=== PATIENT | male | born 1930 | race Caucasian/White ===

== ENCOUNTER 2018-06-06 11:12 | Inpatient (IN) | payer MEDICARE, OTHER ==
[~2018-06-06] VITALS: Ht 182.9 cm; Wt 91.6 kg
[~2018-06-06 11:12] MED LIST: ? HTN MED; ALBU90OI61 INH; ASPI325 PO; ASPI81CH PO; ASPI81EC PO; Anti-Diarrheal2 MG PO; BUDE6HFA INH; CALMAGZIN PO; CLOP75 PO; DESO.05TL TP; DONE10 PO; Dicyclomine HCl20 MG PO; EZET10-10 PO; EZET10-40 PO; GLIM2 PO; IBS MED; KETO120T TP; LISI20 PO; LOPE2C PO; LORA10ER PO; MEMA10 PO; METF500 PO; MOXI400 PO; Ocuvite Softge1 EAC1 PO; VITAMIN D-32000 UNI1 PO; Ventolin Soln3 ML INH; [UNRECOGNIZED DRUG - CODE] PO; [UNRECOGNIZED DRUG - CODE] PO; [UNRECOGNIZED DRUG - CODE] PO; [UNRECOGNIZED DRUG - OTHER]; [UNRECOGNIZED DRUG - OTHER]
[2018-06-06 11:56] LABS: BASOPHILS ABSOLUTE AUTO 0.07 K/mm3 (0.00-0.23); BASOPHILS PERCENT AUTO 1 % (0-2); EOSINOPHILS ABSOLUTE AUTO 0.31 K/mm3 (0.00-0.68); EOSINOPHILS PERCENT AUTO 4 % (0-6); Hematocrit 36.1 % (37.0-53.0); Hemoglobin 11.5 g/dL (13.5-17.5); IMMATURE GRAN ABSOLUTE AUTO 0.03 K/mm3 (0.00-0.10); IMMATURE GRAN PERCENT AUTO 0 % (0-1); LYMPHOCYTES ABSOLUTE AUTO 1.44 K/mm3 (0.84-5.20); LYMPHOCYTES PERCENT AUTO 19 % (21-46); MONOCYTES ABSOLUTE AUTO 0.63 K/mm3 (0.16-1.47); MONOCYTES PERCENT AUTO 9 % (4-13); Mean Corpuscular HGB 31.8 pg (26.0-34.0); Mean Corpuscular HGB Conc 31.9 g/dL (31.5-36.5); Mean Corpuscular Volume 100 fL (80-100); Mean Platelet Volume 9.6 fL (9.1-12.4); NEUTROPHILS ABSOLUTE AUTO 4.93 K/mm3 (1.96-9.15); NEUTROPHILS PERCENT AUTO 67 % (41-73); Platelet Count 212 K/mm3 (150-400); RDW Coefficient Variation 14.5 % (11.7-14.2); RDW Standard Deviation 52.8 fL (35.1-46.3); Red Blood Cell Count 3.62 M/mm3 (4.30-5.90); White Blood Cell Count 7.41 K/mm3 (4.00-11.30)
[2018-06-06 12:18] LABS: Albumin, Blood 3.2 g/dL (3.4-5.0); Albumin/Globulin Ratio 0.9 (0.8-1.8); Bilirubin, Total 0.3 mg/dL (0.1-1.0); Calcium, Blood 8.5 mg/dL (8.5-10.1); Creatinine, Blood 2.65 mg/dL (0.60-1.20); Globulin, Blood 3.4 g/dL (2.2-4.0); Potassium, Blood 5.9 mmol/L (3.5-5.5); Total Protein, Blood 6.6 g/dL (6.4-8.2); Troponin I 0.022 ng/mL (0.000-0.040)
[2018-06-06] MEDS ORDERED: **INCOMPLETE MED REC (13:12)
[2018-06-06] MEDS ORDERED: ALBU90OI6 INH (13:19)
[2018-06-06] MEDS ORDERED: CLOP75 PO (13:20)
[2018-06-06] MEDS ORDERED: ATOR20 PO (13:20)
[2018-06-06] MEDS ORDERED: BUDE6HFA INH (13:20)
[2018-06-06] MEDS ORDERED: DONE10 PO (13:21)
[2018-06-06] MEDS ORDERED: FURO20 PO (13:21)
[2018-06-06] MEDS ORDERED: GLIM2 PO (13:22)
[2018-06-06] MEDS ORDERED: Isosorbide Mono30 MG PO (13:24)
[2018-06-06] MEDS ORDERED: LISI5 PO (13:25)
[2018-06-06] MEDS ORDERED: LUTEIN40 MG PO (13:26)
[2018-06-06] MEDS ORDERED: MELO7.5 PO (13:26)
[2018-06-06] MEDS ORDERED: METO25 PO (13:27)
[2018-06-06] MEDS ORDERED: MEMA10 PO (13:27)
[2018-06-06] MEDS ORDERED: MYRBETRIQ50 MG PO (13:28)
[2018-06-06] MEDS ORDERED: OCTIVITE PO (13:29)
[2018-06-06] MEDS ORDERED: RANO500T PO (13:30)
[2018-06-06] MEDS ORDERED: Aspirin EC81 MG PO ×2 (13:31)
--- NOTE | 2018-06-06 18:42 | NUR ---
SHIFT SUMMARY 1650 PT RECEIVED FROM ER. ALERT AND ORIENTED X3, BUT SLOW TO ANSWER QUESTIONS. VSS. LUNG SOUNDS CLEAR, EXPIRATORY WHEEZES TO THE BASES. NSR RATE 60s PER TELEMETRY. BED ALARM IN PLACE. LR INFUSING AT 125 ML/HR TO LEFT AC. WILL CONTINUE TO MONITOR.
[2018-06-06 19:16] LABS: Source, Urine Voided
[2018-06-06 19:21] LABS: Bilirubin, Urine Neg (Neg); Blood, Urine Neg (Neg); Glucose Qualitative, Urine Neg (Neg); Ketones, Urine Neg (Neg); Leukocyte Esterase, Urine 1+ (Neg); Nitrite, Urine Neg (Neg); Protein, Urine 1+ (Neg); Urobilinogen, Urine NORM (Normal)
[2018-06-06 19:35] LABS: Appearance, Urine Clear (Clear); Color, Urine Yellow (P-Yellow); Red Blood Cells, Urine 0-2 /hpf (0-2)
[2018-06-06 19:37] LABS: Bacteria Few /hpf; Squamous Epithelial Cells Few /hpf (Few)
[2018-06-06 19:54] LABS: Eosinophils-Raw #,Urine 0
[2018-06-07 04:40] LABS: Bun/Creatinine Ratio 21.9 (12.0-20.0); Calcium, Blood 8.5 mg/dL (8.5-10.1); Creatinine, Blood 2.19 mg/dL (0.60-1.20); Potassium, Blood 5.4 mmol/L (3.5-5.5)
--- NOTE | 2018-06-07 05:10 | NUR ---
SHIFT SUMMARY. ASSUMED CARE AT 1900.CLEAR MENTATION. REVIEWS HX OF CAREER AND DISCUSSION OF FAMILY. SR FIRST DEGREE , 70 RATE. DENIES PAIN. COUGH OCC- FREQ AND REPORTS HAS BEEN COMMON FOR ABOUT A YEAR. WHITE SPUTUM . INCONTINENT STATING DUE TO LEAK W/ COUGHING. SMALL STOOL NOTED IN ATTENDS ALSO. CBG WNL AND REFUSES AN HS SNACK. NOTED AT 2400 WHILW DOZING, 88 % SAT ON RA. PLACED ON 2L FOR 94%, SCDS PLACED . AWAKE AT 0215 W/ " FUNNY FEELING , LIKE I HAD AT [facility]." SITS UP QUICKLY HE FEELS THE URGE TO VOMIT.DANGLES AND DENIES DIZZINESS. BP CHECK QUICKLY = 149/67. NO MONITOR CHANGES. ZOFRAN GIVEN AND QUICK RELIEF OF NAUSEA. DANGLED ABOUT 1 HR AND NOW COMFORTABLE. NOTE TALKS TO SELF DURING SLEEP. NO FURTHER DISCOMFORT
--- NOTE | 2018-06-07 06:49 | NUR ---
WOKE UP FROM SOUND SLEEP A LITTLE CONFUSED. TRIES TO VOID A STAND BY AND ALMOST PULLS OUT IV . NOT CONSIDERING IV POLE. 100ML VOIDED AND VERY SOAKED ATTENDS.
--- NOTE | 2018-06-07 16:02 | NUR ---
Spiritual care visit conducted. I was charting near patient's room and heard him setting off his chair alarm and speaking in a loud voice. After the staff helped him get settled down and seated I heard him say that he did not like television much but liked music. So I returned with my guitar and played and sang several songs for the patient, after receiving permission. Patient and the family members present seemed genuinely appreciative of the music and it appeared to bring mary to the patient. Patient expressed gratitude for the visit.
[2018-06-08 04:12] LABS: BASOPHILS ABSOLUTE AUTO 0.04 K/mm3 (0.00-0.23); BASOPHILS PERCENT AUTO 0 % (0-2); EOSINOPHILS ABSOLUTE AUTO 0.26 K/mm3 (0.00-0.68); EOSINOPHILS PERCENT AUTO 2 % (0-6); Hematocrit 38.5 % (37.0-53.0); IMMATURE GRAN ABSOLUTE AUTO 0.04 K/mm3 (0.00-0.10); IMMATURE GRAN PERCENT AUTO 0 % (0-1); LYMPHOCYTES ABSOLUTE AUTO 0.56 K/mm3 (0.84-5.20); LYMPHOCYTES PERCENT AUTO 5 % (21-46); MONOCYTES ABSOLUTE AUTO 1.52 K/mm3 (0.16-1.47); MONOCYTES PERCENT AUTO 13 % (4-13); Mean Corpuscular HGB 31.4 pg (26.0-34.0); Mean Corpuscular HGB Conc 31.2 g/dL (31.5-36.5); Mean Corpuscular Volume 101 fL (80-100); Mean Platelet Volume 9.5 fL (9.1-12.4); NEUTROPHILS ABSOLUTE AUTO 9.01 K/mm3 (1.96-9.15); NEUTROPHILS PERCENT AUTO 79 % (41-73); Platelet Count 203 K/mm3 (150-400); RDW Coefficient Variation 14.2 % (11.7-14.2); RDW Standard Deviation 53.1 fL (35.1-46.3); Red Blood Cell Count 3.82 M/mm3 (4.30-5.90); White Blood Cell Count 11.43 K/mm3 (4.00-11.30)
[2018-06-08 04:36] LABS: Magnesium, Blood 1.8 mg/dL (1.6-2.4)
[2018-06-08 04:37] LABS: Albumin/Globulin Ratio 0.9 (0.8-1.8); Bilirubin, Total 0.4 mg/dL (0.1-1.0); Bun/Creatinine Ratio 21.7 (12.0-20.0); Calcium, Blood 8.3 mg/dL (8.5-10.1); Creatinine, Blood 2.07 mg/dL (0.60-1.20); Globulin, Blood 3.4 g/dL (2.2-4.0); Potassium, Blood 5.5 mmol/L (3.5-5.5); Total Protein, Blood 6.4 g/dL (6.4-8.2)
--- NOTE | 2018-06-08 04:41 | NUR ---
PCU NOC SHIFT SUMMARY PATIENT ALERT AND ORIENTED TO SELF, AND LOCATION T/O SHIFT. LUNG SOUNDS COARSE WITH THICK SPUTUM PRODUCTION - PATIENTS VSS ON ROOM AIR. PATIENT CONTINUOUS TO HAVE COARSE COUGH. PATIENT AMBULATES TO BATHROOM WITH STANDBY ASSIST. PATIENTS HEART RATE REMAINS SR WITH 1ST DEGREE BLOCK AND PVC'S IN THE 80'S. PATIENT NAUSOUS AND VOMITED DURING SHIFT X2. NO ACUTE CHANGES NOTED. WILL CONTINUE TO MONITOR AND GIVE REPORT TO DAYSHIFT RN. CALL LIGHT W/I REACH AND BED ALARM ON.
--- NOTE | 2018-06-08 08:40 | NUR ---
ASSUMED CARE: REPORT RECEIVED FROM KIM Vizcarra RN. ASSUMED CARE OF THIS PT AT APPROX 0700. ON ASSESSMENT, THE PT IS RESTING QUIETLY & DENIES PAIN. HE IS OOB TO CHAIR FOR BREAKFAST & TOLERATED THIS WELL W/ SBA FOR TX. HIS IS AT BEDSIDE & SUPPORTIVE W/ CARE. WILL CONTINUE TO MONITOR & UPDATE NEEDED.
--- NOTE | 2018-06-08 09:10 | NUR ---
DR. ECHAVARRIA: PROVIDER AT BEDSIDE, DISCUSSED POC. SHE STS THE PT CAN NOW BE MEDICAL W/ NO TELE STATUS. NO OTHER ORDERS AT THIS TIME. POSS D/C HOME TOMORROW IF IMPROVEMENT CONTINUES. WILL CONTINUE TO MONITOR & UDPATE NEEDED.
--- NOTE | 2018-06-08 14:00 | NUR ---
Met pt. lying in bed and the spouse in the room , pt. reports doing much better. offered prayers for the pt.
--- NOTE | 2018-06-08 15:26 | NUR ---
ASSUMED CARE OF PT.
--- NOTE | 2018-06-08 18:53 | NUR ---
SHIFT SUMMARY PT ALERT AND ORIENTED. PT HAS MILD CONFUSION, BUT REORIENTS QUICKLY. PT NEEDS ENCOURAGEMENT TO USE CALL LIGHT TO AMBULATE TO BATHROOM. BED ALARM ON. NO CHANGES SINCE INITIAL ASSESSMENT. WILL CONTINUE TO MONITOR AND REPORT TO ONCOMING RN.
--- NOTE | 2018-06-08 23:50 | NUR ---
ASSUMED CARE OF PATIENT AT APPROXIMATELY 1910 FROM LYNETTE Cartagena RN. PATIENT ALERT AND ORIENTED TO SELF AND SURROUNDINGS; UNABLE TO STATE DATE, EVENT OR LOCATION; FORGETFUL; SBA OUT OF BED. PATIENT IS MEDICAL NO TELE STATUS. PATIENT DENIES PAIN, NUMBNESS, TINGLING, DIZZINESS AND NAUSEA. CALLED INSULATION HELPER RANI TO REPORT CRACKLES, FLUID BALANCE AND WEIGHT GAIN; NS INFUSING AT 75 ML/HR; ORDERS TO CONTINUE FLUIDS. OXYGEN SATURATION ABOVE 90% ON ROOM AIR. PATIENT HAS PRODUCTIVE COUGH NOTED; MODERATE AMOUNTS OF SPUTUM PRODUCED. PATIENT CURRENTLY SLEEPING IN BED; CALL LIGHT IN REACH; BED IN LOWEST POSISTION; WILL CONTINUE TO MONITOR AND ASSESS UNTIL END OF SHIFT.
[2018-06-09 03:55] LABS: BASOPHILS ABSOLUTE AUTO 0.03 K/mm3 (0.00-0.23); BASOPHILS PERCENT AUTO 0 % (0-2); EOSINOPHILS PERCENT AUTO 2 % (0-6); Hemoglobin 10.7 g/dL (13.5-17.5); IMMATURE GRAN ABSOLUTE AUTO 0.03 K/mm3 (0.00-0.10); IMMATURE GRAN PERCENT AUTO 0 % (0-1); LYMPHOCYTES ABSOLUTE AUTO 0.83 K/mm3 (0.84-5.20); LYMPHOCYTES PERCENT AUTO 9 % (21-46); MONOCYTES ABSOLUTE AUTO 1.08 K/mm3 (0.16-1.47); MONOCYTES PERCENT AUTO 12 % (4-13); Mean Corpuscular HGB 31.6 pg (26.0-34.0); Mean Corpuscular HGB Conc 31.5 g/dL (31.5-36.5); Mean Corpuscular Volume 100 fL (80-100); Mean Platelet Volume 9.3 fL (9.1-12.4); NEUTROPHILS ABSOLUTE AUTO 6.62 K/mm3 (1.96-9.15); NEUTROPHILS PERCENT AUTO 75 % (41-73); Platelet Count 149 K/mm3 (150-400); RDW Coefficient Variation 14.3 % (11.7-14.2); RDW Standard Deviation 53.1 fL (35.1-46.3); Red Blood Cell Count 3.39 M/mm3 (4.30-5.90); White Blood Cell Count 8.79 K/mm3 (4.00-11.30)
[2018-06-09 04:22] LABS: Bun/Creatinine Ratio 24.4 (12.0-20.0); Creatinine, Blood 1.8 mg/dL (0.60-1.20); Potassium, Blood 5.8 mmol/L (3.5-5.5)
--- NOTE | 2018-06-09 08:10 | NUR ---
ASSUMED CARE: REPORT RECEIVED FROM MERCY Sifuentes RN. ASSUMED CARE OF THIS PT AT APPROX 0700. ROUNDING COMPLETE, PT RESTING QUIETLY AT THAT TIME. HIS IS AT BEDSIDE. HE DENIES PAIN OR NEEDS THIS AM. DOES HAVE MORE PRODUCTIVE COUGH THIS AM, PRODUCING YELLOW-CLEAR, THICK SPUTUM, DENIES "FEELING CONGESTED." PT DOES HAVE POSITIVE FLUID BALANCE ACCORDING TO I&Os & LASIX HAS BEEN HELD SINCE ADMIT. WILL ADDRESS W/ PROVIDER THIS AM. WILL CONTINUE TO MONITOR & UPDATE NEEDED.
--- NOTE | 2018-06-09 09:50 | NUR ---
DR. ECHAVARRIA: PROVIDER AT BEDSIDE. STS OKAY FOR PT TO D/C HOME. SHE WILL BE DECREASING PT's HOME DOSE OF LASIX & IT MAY BE RESUMED TODAY WHEN PT RETURNS HOME. JAKE Dolan, CHARGE NURSE, IS WORKING ON PT's D/C PACKET. WILL CONTINUE TO MONITOR & UPDATE NEEDED.
[2018-06-09] MEDS ORDERED: GUAI600T33 PO (10:05)
--- NOTE | 2018-06-09 11:08 | NUR ---
DISCHARGE TO HOME: D/C INSTRUCTIONS HAVE BEEN DISCUSSED W/ PT & PT's BY JAKE Dolan, SURVEYING CREW RODMAN. THEY HAVE DENIED FURTHER QUESTIONS. PIV HAS BEEN REMOVED & ALL BELONGINGS HAVE BEEN COLLECTED FROM ROOM. ESCORT VOLUNTEER ARRIVED & PT D/C'd FROM ROOM AT APPROX 1105. D/C PACKET TAKEN W/ PT's .
--- NOTE | 2018-06-09 13:16 | NUR ---
Pt. is in bed resting he reports doing well and may go home today or angel offered prayers for the pt.
== END 2018-06-09 11:05 | disposition home or self-care (01) | DRG 315 ==
LOC: ER 11:12 → PCU 14:43
PROVIDERS: Emergency Medicine; Internal Medicine; ADMIT Internal Medicine
DX: I95.9 Hypotension, unspecified (principal); N17.9 Acute kidney failure, unspecified; I13.0 Hypertensive heart and chronic kidney disease with heart failure and stage 1 through stage 4 chronic kidney disease, or unspecified chronic kidney disease; I50.32 Chronic diastolic (congestive) heart failure; E86.0 Dehydration; I44.0 Atrioventricular block, first degree; Z79.01 Long term (current) use of anticoagulants; I25.10 Atherosclerotic heart disease of native coronary artery without angina pectoris; E11.22 Type 2 diabetes mellitus with diabetic chronic kidney disease; J44.9 Chronic obstructive pulmonary disease, unspecified; F03.90 Unspecified dementia, unspecified severity, without behavioral disturbance, psychotic disturbance, mood disturbance, and anxiety; E87.5 Hyperkalemia; E86.9 Volume depletion, unspecified; Z95.1 Presence of aortocoronary bypass graft; Z95.5 Presence of coronary angioplasty implant and graft; E78.5 Hyperlipidemia, unspecified; Z87.891 Personal history of nicotine dependence; Z85.46 Personal history of malignant neoplasm of prostate; N18.3 Chronic kidney disease, stage 3 (moderate)
CPT/HCPCS: 36415; 71046; 71250; 80048; 80053; 81001; 82947; 83735; 83880; 84484; 85025; 87086; 87205; 93005; 93010; 94010; 94640; 94664; 94667; 94760; 96360; 97162; 97530; 98960; 99285-25; J1644; J2405; J7030; J7120

== ENCOUNTER 2018-08-30 06:25 | Inpatient (IN) | payer MEDICARE, OTHER ==
[~2018-08-30] VITALS: Ht 182.9 cm; Wt 91.6 kg
[~2018-08-30 06:25] MED LIST changes: +**INCOMPLETE MED REC; +ALBU90OI6 INH; +ATOR20 PO; +Aspirin EC81 MG PO; +FURO20 PO; +GUAI600T33 PO; +Isosorbide Mono30 MG PO; +LISI5 PO; +LUTEIN40 MG PO; +MELO7.5 PO; +METO25 PO; +MYRBETRIQ50 MG PO; +OCTIVITE PO; +RANO500T PO
[2018-08-30] MEDS ORDERED: BUDE6HFA INH (06:36)
[2018-08-30] MEDS ORDERED: LISI5 PO (06:37)
[2018-08-30 07:33] LABS: BASOPHILS ABSOLUTE AUTO 0.03 K/mm3 (0.00-0.23); BASOPHILS PERCENT AUTO 0 % (0-2); EOSINOPHILS ABSOLUTE AUTO 0.04 K/mm3 (0.00-0.68); EOSINOPHILS PERCENT AUTO 1 % (0-6); Hematocrit 32.8 % (37.0-53.0); Hemoglobin 10.8 g/dL (13.5-17.5); IMMATURE GRAN ABSOLUTE AUTO 0.03 K/mm3 (0.00-0.10); IMMATURE GRAN PERCENT AUTO 0 % (0-1); LYMPHOCYTES ABSOLUTE AUTO 0.66 K/mm3 (0.84-5.20); LYMPHOCYTES PERCENT AUTO 8 % (21-46); MONOCYTES ABSOLUTE AUTO 0.77 K/mm3 (0.16-1.47); MONOCYTES PERCENT AUTO 9 % (4-13); Mean Corpuscular HGB 32.6 pg (26.0-34.0); Mean Corpuscular HGB Conc 32.9 g/dL (31.5-36.5); Mean Corpuscular Volume 99 fL (80-100); Mean Platelet Volume 9.5 fL (9.1-12.4); NEUTROPHILS ABSOLUTE AUTO 6.62 K/mm3 (1.96-9.15); NEUTROPHILS PERCENT AUTO 81 % (41-73); Platelet Count 135 K/mm3 (150-400); RDW Coefficient Variation 14.6 % (11.7-14.2); RDW Standard Deviation 53.1 fL (35.1-46.3); Red Blood Cell Count 3.31 M/mm3 (4.30-5.90); White Blood Cell Count 8.15 K/mm3 (4.00-11.30)
[2018-08-30 08:08] LABS: Alanine Aminotransfer (ALT/SGP 14 U/L (12-78); Albumin, Blood 2.9 g/dL (3.4-5.0); Albumin/Globulin Ratio 0.8 (0.8-1.8); Alk Phos 44 U/L (50-136); Anion Gap 11 mmol/L (6-16); Aspartate Aminotrans (AST/SGOT 11 U/L (12-37); Bilirubin, Total 0.6 mg/dL (0.1-1.0); Blood Urea Nitrogen 56 mg/dL (8-24); CO2, Blood 21 mmol/L (21-32); Calcium, Blood 8.3 mg/dL (8.5-10.1); Chloride, Blood 111 mmol/L (98-108); Creatinine, Blood 2.95 mg/dL (0.60-1.20); Globulin, Blood 3.6 g/dL (2.2-4.0); Glomerular Filtration Rate 22 (60-); Glucose, Blood 65 mg/dL (70-99); Potassium, Blood 4.3 mmol/L (3.5-5.5); Sodium, Blood 143 mmol/L (136-145); Total Protein, Blood 6.5 g/dL (6.4-8.2); Troponin I <0.015 ng/mL (0.000-0.040)
[2018-08-30] MEDS ORDERED: RANO500T PO (12:54)
--- NOTE | 2018-08-30 15:27 | NUR ---
WALKED INTO ROOM AND PATIENT WAS COUGHING STRENUOUSLY. ASKED PATIENT IF HE WAS HAVING A HARD TIME BREATHING. PATIENT REPLIED YES. MEASURED PULSE OX AND IT WAS IN THE MID 80'S AND LUNGS SOUNDED VERY CONGESTED AND COURSE. APPLIED O2 VIA NASAL CANNULA AT 3 L. O2 IMPROVED INTO THE MID 90'S. CONTACTED RESPIRATORY THERAPY AND ARRANGED FOR PATIENT TO HAVE A BREATHING TREATMENT WHEN RT WAS AVAILABLE.
--- NOTE | 2018-08-30 17:22 | NUR ---
NOTED THAT PT HAD A FIELD START ON THE TOP OF LEFT HAND. D/C'D DUE TO PATENT IV IN R AC.
--- NOTE | 2018-08-30 18:13 | NUR ---
DISCUSSED WITH CONCERNS OF ASPIRATING ON LIQUIDS/PILLS. SPEECH EVAL PLACED. DISCUSSED RT REQUEST FOR SCHEDULED BREATHING TREATMENT, ORDER PLACED. DISCUSSED PROBABLE UTI BASED ON DARK FOUL SMELLING URINE, BROAD SPECTRUM ANTIBIOTICS INVOLVED IN EMAR.
--- NOTE | 2018-08-30 18:16 | NUR ---
Pt asleep after breathing treatment, stepped out. Review of pt with nursing staff. Pt has an AD on file. OUr department has spoke with him before. Will meet with to see if they are still living in their trailer and and get more histroy for a plan of care, prognosis and risk reduction.
[2018-08-30 20:56] LABS: Adenovirus Not Detected (NOT DETECT); Bordetella pertussis Not Detected (NOT DETECT); Chlamydophila pneumoniae Not Detected (NOT DETECT); Coronavirus 229E Not Detected (NOT DETECT); Coronavirus HKU1 Not Detected (NOT DETECT); Coronavirus NL63 Not Detected (NOT DETECT); Coronavirus OC43 Not Detected (NOT DETECT); Human Metapneumovirus Not Detected (NOT DETECT); Human Rhinovirus/Enterovirus Detected (NOT DETECT); Influenza A Not Detected (NOT DETECT); Influenza A/2009-H1 Not Detected (NOT DETECT); Influenza A/H1 Not Detected (NOT DETECT); Influenza A/H3 Not Detected (NOT DETECT); Influenza B Not Detected (NOT DETECT); Mycoplasma pneumoniae Not Detected (NOT DETECT); Parainfluenza Virus 1 Not Detected (NOT DETECT); Parainfluenza Virus 2 Not Detected (NOT DETECT); Parainfluenza Virus 3 Not Detected (NOT DETECT); Parainfluenza Virus 4 Not Detected (NOT DETECT); Respiratory Syncytial Virus Not Detected (NOT DETECT)
--- NOTE | 2018-08-30 21:12 | NUR ---
DR bermeo for audible wheeze and air hunger hypoxia and poor air exchange. DR Barrera updated and bipap protocol rx per rt recommendations. ativan 1 mg x 1 for air hunger and anxiety . Attempting to get out of bed multiple times recent multiple falls and rt great toe fracture. Discussed giving 2nd dose of IV lasix for possible pulmonary edema MD reviewed labs and declined. Had 1st dose 1700s and incontinent of urine per attends.
--- NOTE | 2018-08-31 01:11 | NUR ---
PT HAS BEEN REMOVING OXYGEN AND THEN CPAP, REMOVED CONT PULSE OXIMETER. HAD TOLERATED CPAP WITH 4 L BLED IN FOR ABOUT 2 HOURS BEFORE REFUSING IT. HOB UP 4 L NC. LOOSE MOIST NONPROD COUGH. ADRIANNE HOSE APPLIED. HIGH FALL RISK RECENT MULTIPLE FALLS WITH RT GRAT TOE NONDISPLACED FX AND LT GREAT TOE BRUISES. 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 HAS SPOUSE AND GROWN SON IN [place]. DNR STATUS, FALL PRECAUTIONS CONTINUE. BREATHING LESS NOISY AND LABORED. ON ANTIBIOTICS FOR POSSIBLE PNEUMONIA.
--- NOTE | 2018-08-31 03:39 | NUR ---
droplet and contact isolation initiated due to positive rhinovirus and also has enterovirus in nares. continues with loose nonprod cough and hypoxia on room air. bypap with 4 l nc continues as tolerated or 4 l nc. no sputum sample sent yet.
[2018-08-31 04:56] LABS: BASOPHILS ABSOLUTE AUTO 0.01 K/mm3 (0.00-0.23); BASOPHILS PERCENT AUTO 0 % (0-2); EOSINOPHILS PERCENT AUTO 0 % (0-6); Hematocrit 36.7 % (37.0-53.0); IMMATURE GRAN ABSOLUTE AUTO 0.08 K/mm3 (0.00-0.10); IMMATURE GRAN PERCENT AUTO 1 % (0-1); LYMPHOCYTES ABSOLUTE AUTO 0.46 K/mm3 (0.84-5.20); LYMPHOCYTES PERCENT AUTO 5 % (21-46); MONOCYTES PERCENT AUTO 8 % (4-13); Mean Corpuscular HGB 31.7 pg (26.0-34.0); Mean Corpuscular HGB Conc 32.7 g/dL (31.5-36.5); Mean Corpuscular Volume 97 fL (80-100); Mean Platelet Volume 9.9 fL (9.1-12.4); NEUTROPHILS ABSOLUTE AUTO 7.66 K/mm3 (1.96-9.15); NEUTROPHILS PERCENT AUTO 86 % (41-73); Platelet Count 174 K/mm3 (150-400); RDW Coefficient Variation 14.3 % (11.7-14.2); RDW Standard Deviation 51.3 fL (35.1-46.3); Red Blood Cell Count 3.79 M/mm3 (4.30-5.90); White Blood Cell Count 8.91 K/mm3 (4.00-11.30)
--- NOTE | 2018-08-31 04:58 | NUR ---
DR Diez updated on loose moist nonprod cough with positive rhino and enterovirus per resp panel. orders obtained for robitussin ac and tessalon prn for hacking persistant cough.
[2018-08-31 05:13] LABS: Bun/Creatinine Ratio 22.7 (12.0-20.0); Calcium, Blood 8.9 mg/dL (8.5-10.1); Potassium, Blood 5.7 mmol/L (3.5-5.5)
--- NOTE | 2018-08-31 14:39 | NUR ---
PATIENT COMPAINED OF NAUSEA AND STOMACH BURNING @ 1400. ADMINISTERED IV ZOFRAN PER EMAR. HAD NANCY JACKSON CONTACT PHYSICIAN TO ORDER TUMS FOR INDIGESTION.
--- NOTE | 2018-08-31 17:11 | NUR ---
patient appeared short of breath and had frequent coughing. giving ice chips with patient laying at a slight decline. instructed to not give ice chips while patient is reclined. patient has been short of breathe and very crackly in the lungs. notified dr. mondragon. 1x lasix order placed. Bladder scanned patient due to inability to void, 675 noted. Straight Cath patient, 800 out. Patient not coughing and is breathing without issues at this time.
--- NOTE | 2018-08-31 17:49 | NUR ---
ASSUMED CARE AT 1730. STUDENT N NOTIFIED THIS NURSE OF PATIENTS COMPLAIN OF CHEST PAIN. PATIENT WAS PALES, GRIMICING AND TACHYPNIC. NO DIAPHORESIS NOTED. VS OBTAINED, SPO2 WAS 88% ON 3L, CAME UP TO 90%. NOTIFIED. HE GAVE VERBAL ORDERS FOR STAT TROPONIN, EKG AND TX TO PCU. PERCUSSION INSTRUMENT TUNER AND CHARGE NURSE NOTIFIED. PATIENT TO TX TO PCU 13. UPON REASSESSMENT PATIENT DENIED CHEST PAIN, HE DOES HAVE HX DEMENTIA WITH SUNDOWNING. HE IS STILL TACHYPNIC, COLOR HAS IMPROVED. AT [facility] AND UPDATED TO PLAN. NO QUESTIONS OR CONCERNS AT THIS TIME. WILL CONT TO MONITOR.
--- NOTE | 2018-08-31 19:00 | NUR ---
PATIENT TRANSFERED TO PCU. REPORT GIVEN TO RENETTA NEVES. ALSO NOTIFIED HER AND PCU WORKERS COMPENSATION ANALYST OF CRITICAL TROP 11.40. RECEIVED RETURN CALL FROM AND HE STATES TO WATCH FOR NEW ORDERS, INFO RELAYED TO RENETTA AND WORKERS COMPENSATION ANALYST. REMAINS AT BEDSIDE.
[2018-08-31 20:11] LABS: International Normalized Ratio 0.95; Prothrombin Time Results 10.1 Sec (9.7-11.5)
--- NOTE | 2018-08-31 22:04 | NUR ---
CARE ASSUMPTION PT BROUGHT TO PCU 13 FROM MEDICAL FLOOR @ APPROX 1900. PT ALERT, ORIENTED TO SELF AND FAMILY AT BEDSIDE. PT C/O CP STATING "IT HURTS!" WHILE HITTING HIS R FIST TO HIS L UPPER CHEST REPEATITIVELY. PT STATES PAIN "COMES AND GOES". MONITOR SHOWS NSR W/ HR 80'S W/ SLIGHT ST DEPRESSION. NITRO-BID OINTMENT APPLIED PER EMAR W/ RELIEF OF CP. CARDIOLOGY CONSULT CALLED, HEPARIN BOLUS GIVEN, AND HEPARIN GTT INFUSING PER ORDERS. PT FAMILY AT BEDSIDE ALERTING STAFF OF PT "SUNDOWNING AND WILL WANT TO GO HOME." PT PLEASANTLY CONFUSED AND REDIRECTABLE. PT IN BED W/ CALL LIGHT IN REACH AND BED ALARM ON. WILL CONTINUE TO MONITOR AND PROVIDE CARE.
--- NOTE | 2018-09-01 05:05 | NUR ---
SHIFT SUMMARY NO FURTHER EVENTS OF CP T/O SHIFT BEYOND CARE ASSUMPTION NOTE. VSS. CARDIZEM GTT INFUSING PER ORDERS. PT AWAITING CARDIOLOGY CONSULT FOR ELEVATED TROPONIN. PT PLEASANTLY CONFUSED, ALERT & ORIENTED TO SELF AND FAMILY, FOLLOWING DIRECTIONS. PT LUNG SOUNDS COARSE T/O. SPO2 > 92% ON 3L NC. MONITOR SHOWS NSR W/ SLIGHT ST DEPRESSION. PT CONTINENT/INCONTINENT, WEARING ATTENDS AND USING URINAL. MULTIPLE ABRASIONS NOTED ON PT'S FOREHEAD, BACK OF HEAD, AND T/O EXTREMETIES. BRUISING TO PT'S RIGHT FOOT, BIG TOE. PT ATTRIBUTES SKIN INJURIES TO "CRASHING AND BURNING" AT HOME. PT STATES HAVING STAIRS AT HOME THAT CAUSE HIM TO TRIP AND FALL. PT IN BED W/ CALL LIGHT IN REACH. BED ALARM ON. WILL CONTINUE TO MONITOR AND PROVIDE CARE
--- NOTE | 2018-09-01 08:00 | NUR ---
PT LAYING IN BED COUGHING AWAKE, A/OX3, [place] AND SOMEWHAT BLIND, FOLLOWS COMMANDS WELL, LUNGS ARE COURSE T/O WITH SOME EXP WHEEZING T/O, HAS A VERY HARSH COUGH BUT NOT ABLE TO BRING ANYTHING UP AT THIS TIME, CURRENTLY ON 3 LITERS 02 VIA N/C, RESP EVEN AND MILDLY LABORED AT REST, HRR, TELE IN PLACE RUNNING SR PER MONITOR, SEE STRIP, NO EDEMA NOTED, PPP+1, CAP REFILL <3SEC, VS STABLE, AFEBRILE, IV SITE TO LAC SITE IS CLEAR AND PATENT, INFUSING HEPERIN GTT ORDERED, BTX4, ABD ROUND SOFT NONTENDER, VOIDS VIA URINAL, BUT CHECKED A PVR, STILL HAD ALMOST 600MLS STILL IN, WILL PLACE MEJIAS. PT HAS ATTENDS IN PLACE WELL, SKIN IS VERY FRAIL, AND HAS SCATTERED BRUISING, MAEW, FINN, CALL LIGHT IN REACH.
[2018-09-01 09:06] LABS: Albumin, Blood 2.8 g/dL (3.4-5.0); Anion Gap 9 mmol/L (6-16); Blood Urea Nitrogen 70 mg/dL (8-24); Bun/Creatinine Ratio 26.2 (12.0-20.0); CO2, Blood 20 mmol/L (21-32); Calcium, Blood 8.4 mg/dL (8.5-10.1); Chloride, Blood 107 mmol/L (98-108); Creatinine, Blood 2.67 mg/dL (0.60-1.20); Glomerular Filtration Rate 24 (60-); Glucose, Blood 260 mg/dL (70-99); Magnesium, Blood 2.1 mg/dL (1.6-2.4); Phosphorus, Blood 4.5 mg/dL (2.5-4.9); Potassium, Blood 5.4 mmol/L (3.5-5.5); Sodium, Blood 136 mmol/L (136-145)
--- NOTE | 2018-09-01 10:25 | NUR ---
Echocardiogram completed.
--- NOTE | 2018-09-01 11:24 | NUR ---
Pt. is in bed relaxed he reports not doing so well as yesterday, encouraged pt. and offered prayers.
--- NOTE | 2018-09-01 12:04 | NUR ---
PLACED NEW PIV TO LFA AFTER 2 OTHER ATTEMPTS, PLACED 20g WITH GOOD BLOOD RETURN AND FLUSHES WELL, PT TOLERATED WELL, ATTEMPTED TO PLACE A 14F MEJIAS, WAS UNSUCCESSFUL, USED LIDOCAINE, AND ATTEMPTED AT COUDE, BUT PT WAS IN DISTRESS WHEN CATH TOUCHED THE PROSTATE, AND TIP OF CATH HAD A BIT OF BLOOD ON IT. CALLED DR. PEREZ AND LET HIM KNOW, MAY NEED TO TRANSFER PT. AT BEDSIDE, PT HAS A VERY HARSH COUGH, GAVE HIM TESSALON THIS AM, HE IS NOT CURRENTLY BRINGING ANYTHING UP AT THIS TIME, CALL LIGHT IN REACH.
--- NOTE | 2018-09-01 14:12 | NUR ---
transport here to take pt to [facility] in [place], called report to Jaspreet NEVES. pt left via gurney with emt in transport. all belongings went with his .
== END 2018-09-01 14:15 | disposition short-term general hospital (02) | DRG 280 ==
LOC: ER 06:25 → PCU 09:36 → MEDS 09:36 → PCU 10:49 → MEDS 10:49 → PCU 08-31 19:00
PROVIDERS: Emergency Medicine; Internal Medicine Nephrology; ADMIT Hospitalist
DX: I13.0 Hypertensive heart and chronic kidney disease with heart failure and stage 1 through stage 4 chronic kidney disease, or unspecified chronic kidney disease (principal); I50.23 Acute on chronic systolic (congestive) heart failure; I21.4 Non-ST elevation (NSTEMI) myocardial infarction; J18.1 Lobar pneumonia, unspecified organism; N18.4 Chronic kidney disease, stage 4 (severe); N17.9 Acute kidney failure, unspecified; J44.0 Chronic obstructive pulmonary disease with (acute) lower respiratory infection; J44.1 Chronic obstructive pulmonary disease with (acute) exacerbation; E11.22 Type 2 diabetes mellitus with diabetic chronic kidney disease; R33.9 Retention of urine, unspecified; F03.90 Unspecified dementia, unspecified severity, without behavioral disturbance, psychotic disturbance, mood disturbance, and anxiety; E78.5 Hyperlipidemia, unspecified; I25.10 Atherosclerotic heart disease of native coronary artery without angina pectoris; Z95.1 Presence of aortocoronary bypass graft; I25.5 Ischemic cardiomyopathy; I73.9 Peripheral vascular disease, unspecified; Z87.891 Personal history of nicotine dependence; I25.2 Old myocardial infarction; I44.0 Atrioventricular block, first degree; D64.9 Anemia, unspecified
CPT/HCPCS: 36415; 70450; 71046; 73660; 76770; 80048; 80053; 80069; 82947; 83605; 83735; 83880; 84145; 84484; 85018; 85025; 85610; 85730; 87040; 87486; 87581; 87633; 87798; 92610; 93005; 93010; 93308; 93321; 94640; 94660; 94760; 94762; 96365; 96375; 97165; 97535; 99285-25; J0456; J0696; J1644; J1650; J1940; J2405; J2930; J7050; J7512

== ENCOUNTER 2018-09-15 09:21 | Emergency (ER) | payer MEDICARE, OTHER ==
[~2018-09-15] VITALS: Ht 182.9 cm; Wt 89.8 kg
[~2018-09-15 09:21] MED LIST changes: -METO25 PO; +METO25ER PO
[2018-09-15 10:02] LABS: BASOPHILS ABSOLUTE AUTO 0.02 K/mm3 (0.00-0.23); BASOPHILS PERCENT AUTO 0 % (0-2); EOSINOPHILS PERCENT AUTO 2 % (0-6); Hematocrit 34.3 % (37.0-53.0); Hemoglobin 11.1 g/dL (13.5-17.5); IMMATURE GRAN ABSOLUTE AUTO 0.02 K/mm3 (0.00-0.10); IMMATURE GRAN PERCENT AUTO 0 % (0-1); LYMPHOCYTES ABSOLUTE AUTO 0.58 K/mm3 (0.84-5.20); LYMPHOCYTES PERCENT AUTO 11 % (21-46); MONOCYTES ABSOLUTE AUTO 0.43 K/mm3 (0.16-1.47); MONOCYTES PERCENT AUTO 8 % (4-13); Mean Corpuscular HGB 31.9 pg (26.0-34.0); Mean Corpuscular HGB Conc 32.4 g/dL (31.5-36.5); Mean Corpuscular Volume 99 fL (80-100); Mean Platelet Volume 9.8 fL (9.1-12.4); NEUTROPHILS ABSOLUTE AUTO 4.19 K/mm3 (1.96-9.15); NEUTROPHILS PERCENT AUTO 78 % (41-73); Platelet Count 137 K/mm3 (150-400); RDW Standard Deviation 55.1 fL (35.1-46.3); Red Blood Cell Count 3.48 M/mm3 (4.30-5.90); White Blood Cell Count 5.34 K/mm3 (4.00-11.30)
[2018-09-15] MEDS ORDERED: NITR.4SL SL (10:26)
[2018-09-15] MEDS ORDERED: TAMS.4ER PO (10:28)
[2018-09-15] MEDS ORDERED: BENZ100A PO (10:29)
[2018-09-15] MEDS ORDERED: GUAI600T33 PO (10:29)
[2018-09-15 10:33] LABS: Bilirubin, Total 0.7 mg/dL (0.1-1.0); Bun/Creatinine Ratio 18.4 (12.0-20.0); Calcium, Blood 8.4 mg/dL (8.5-10.1); Creatinine, Blood 1.96 mg/dL (0.60-1.20); Globulin, Blood 3.1 g/dL (2.2-4.0); Potassium, Blood 4.5 mmol/L (3.5-5.5); Total Protein, Blood 6.1 g/dL (6.4-8.2); Troponin I 0.029 ng/mL (0.000-0.040)
== END 2018-09-15 12:46 | disposition home or self-care (01) ==
LOC: ER 09:21
PROVIDERS: Emergency Medicine
DX: R55 Syncope and collapse (principal); I25.2 Old myocardial infarction; Z87.01 Personal history of pneumonia (recurrent); E11.51 Type 2 diabetes mellitus with diabetic peripheral angiopathy without gangrene; E78.5 Hyperlipidemia, unspecified; F03.90 Unspecified dementia, unspecified severity, without behavioral disturbance, psychotic disturbance, mood disturbance, and anxiety; G62.9 Polyneuropathy, unspecified; I50.9 Heart failure, unspecified; Z85.46 Personal history of malignant neoplasm of prostate; Z87.891 Personal history of nicotine dependence; Z88.0 Allergy status to penicillin; Z79.84 Long term (current) use of oral hypoglycemic drugs
CPT/HCPCS: 36415; 71046; 80053; 83880; 84484; 85025; 93005; 93010; 96361; 96374; 99284-25; J2405; J7120

== ENCOUNTER 2018-10-01 11:36 | Inpatient (IN) | payer MEDICARE, OTHER ==
[~2018-10-01] VITALS: Ht 180.3 cm; Wt 88.1 kg
[~2018-10-01 11:36] MED LIST changes: +BENZ100A PO; -MYRBETRIQ50 MG PO; +NITR.4SL SL; -OCTIVITE PO; +Ocuvite Preser1 EACH PO; +TAMS.4ER PO
[2018-10-01 11:52] LABS: BASOPHILS ABSOLUTE AUTO 0.05 K/mm3 (0.00-0.23); BASOPHILS PERCENT AUTO 1 % (0-2); EOSINOPHILS ABSOLUTE AUTO 0.22 K/mm3 (0.00-0.68); EOSINOPHILS PERCENT AUTO 4 % (0-6); Hematocrit 34.1 % (37.0-53.0); Hemoglobin 11.1 g/dL (13.5-17.5); IMMATURE GRAN ABSOLUTE AUTO 0.07 K/mm3 (0.00-0.10); IMMATURE GRAN PERCENT AUTO 1 % (0-1); LYMPHOCYTES PERCENT AUTO 21 % (21-46); MONOCYTES ABSOLUTE AUTO 0.85 K/mm3 (0.16-1.47); MONOCYTES PERCENT AUTO 14 % (4-13); Mean Corpuscular HGB 32.6 pg (26.0-34.0); Mean Corpuscular HGB Conc 32.6 g/dL (31.5-36.5); Mean Corpuscular Volume 100 fL (80-100); Mean Platelet Volume 9.1 fL (9.1-12.4); NEUTROPHILS ABSOLUTE AUTO 3.82 K/mm3 (1.96-9.15); NEUTROPHILS PERCENT AUTO 61 % (41-73); Platelet Count 165 K/mm3 (150-400); RDW Coefficient Variation 15.6 % (11.7-14.2); RDW Standard Deviation 57.6 fL (35.1-46.3); White Blood Cell Count 6.31 K/mm3 (4.00-11.30)
[2018-10-01] MEDS ORDERED: LO-DOSE ASPIRIN81 MG PO (12:06)
[2018-10-01] MEDS ORDERED: Ranexa1000 MG PO (12:07)
[2018-10-01] MEDS ORDERED: CLOP75 PO (12:08)
[2018-10-01] MEDS ORDERED: METO25ER PO (12:09)
[2018-10-01 12:14] LABS: Albumin, Blood 3.3 g/dL (3.4-5.0); Albumin/Globulin Ratio 1.2 (0.8-1.8); Bilirubin, Total 0.4 mg/dL (0.1-1.0); Calcium, Blood 8.7 mg/dL (8.5-10.1); Creatinine, Blood 1.74 mg/dL (0.60-1.20); Globulin, Blood 2.8 g/dL (2.2-4.0); Potassium, Blood 4.8 mmol/L (3.5-5.5); Total Protein, Blood 6.1 g/dL (6.4-8.2)
[2018-10-01] MEDS ORDERED: GLIM2 PO (12:22)
[2018-10-01] MEDS ORDERED: ATOR20 PO (12:22)
[2018-10-01] MEDS ORDERED: Isosorbide Mono30 MG PO (12:22)
[2018-10-01] MEDS ORDERED: NITR.4SL SL (12:22)
[2018-10-01] MEDS ORDERED: FURO20 PO (12:23)
[2018-10-01] MEDS ORDERED: TAMS.4ER PO (12:24)
[2018-10-01] MEDS ORDERED: ALBU90OI6 PO (12:24)
[2018-10-01] MEDS ORDERED: Symbicort 16010.2 GM INH (12:25)
[2018-10-01] MEDS ORDERED: DONE10 PO (12:25)
[2018-10-01] MEDS ORDERED: LUTEIN40 MG PO (12:26)
[2018-10-01] MEDS ORDERED: GUAI600T33 PO (12:26)
[2018-10-01] MEDS ORDERED: OCUVITE ADULT1 EAC1 PO (12:26)
[2018-10-01] MEDS ORDERED: MYRBETRIQ50 MG PO (14:45)
[2018-10-02 04:15] LABS: BASOPHILS ABSOLUTE AUTO 0.05 K/mm3 (0.00-0.23); BASOPHILS PERCENT AUTO 1 % (0-2); EOSINOPHILS ABSOLUTE AUTO 0.07 K/mm3 (0.00-0.68); EOSINOPHILS PERCENT AUTO 1 % (0-6); Hematocrit 33.9 % (37.0-53.0); Hemoglobin 10.6 g/dL (13.5-17.5); IMMATURE GRAN ABSOLUTE AUTO 0.04 K/mm3 (0.00-0.10); IMMATURE GRAN PERCENT AUTO 1 % (0-1); LYMPHOCYTES ABSOLUTE AUTO 1.14 K/mm3 (0.84-5.20); LYMPHOCYTES PERCENT AUTO 16 % (21-46); MONOCYTES ABSOLUTE AUTO 1.18 K/mm3 (0.16-1.47); MONOCYTES PERCENT AUTO 16 % (4-13); Mean Corpuscular HGB 32.2 pg (26.0-34.0); Mean Corpuscular HGB Conc 31.3 g/dL (31.5-36.5); Mean Platelet Volume 9.4 fL (9.1-12.4); NEUTROPHILS ABSOLUTE AUTO 4.76 K/mm3 (1.96-9.15); NEUTROPHILS PERCENT AUTO 66 % (41-73); Platelet Count 170 K/mm3 (150-400); RDW Coefficient Variation 15.3 % (11.7-14.2); RDW Standard Deviation 58.6 fL (35.1-46.3); Red Blood Cell Count 3.29 M/mm3 (4.30-5.90); White Blood Cell Count 7.24 K/mm3 (4.00-11.30)
[2018-10-02 04:25] LABS: Mean Corpuscular Volume 103 fL (80-100)
[2018-10-02 04:37] LABS: Bun/Creatinine Ratio 22.4 (12.0-20.0); Calcium, Blood 8.9 mg/dL (8.5-10.1); Creatinine, Blood 1.7 mg/dL (0.60-1.20); Potassium, Blood 5.5 mmol/L (3.5-5.5)
[2018-10-02 16:17] LABS: PCO2 Arterial 57.2 mmHg (35-45); pH Blood Arterial 7.31 (7.35-7.45)
[2018-10-03 03:44] LABS: BASOPHILS ABSOLUTE AUTO 0.03 K/mm3 (0.00-0.23); BASOPHILS PERCENT AUTO 0 % (0-2); EOSINOPHILS ABSOLUTE AUTO 0.06 K/mm3 (0.00-0.68); EOSINOPHILS PERCENT AUTO 1 % (0-6); Hematocrit 32.7 % (37.0-53.0); Hemoglobin 10.2 g/dL (13.5-17.5); IMMATURE GRAN ABSOLUTE AUTO 0.05 K/mm3 (0.00-0.10); IMMATURE GRAN PERCENT AUTO 1 % (0-1); LYMPHOCYTES ABSOLUTE AUTO 0.91 K/mm3 (0.84-5.20); LYMPHOCYTES PERCENT AUTO 13 % (21-46); MONOCYTES ABSOLUTE AUTO 1.04 K/mm3 (0.16-1.47); MONOCYTES PERCENT AUTO 15 % (4-13); Mean Corpuscular HGB 32.4 pg (26.0-34.0); Mean Corpuscular HGB Conc 31.2 g/dL (31.5-36.5); Mean Corpuscular Volume 104 fL (80-100); Mean Platelet Volume 9.4 fL (9.1-12.4); NEUTROPHILS ABSOLUTE AUTO 4.72 K/mm3 (1.96-9.15); NEUTROPHILS PERCENT AUTO 69 % (41-73); Platelet Count 143 K/mm3 (150-400); RDW Coefficient Variation 15.1 % (11.7-14.2); RDW Standard Deviation 57.9 fL (35.1-46.3); Red Blood Cell Count 3.15 M/mm3 (4.30-5.90); White Blood Cell Count 6.81 K/mm3 (4.00-11.30)
[2018-10-03 04:01] LABS: Albumin, Blood 3.1 g/dL (3.4-5.0); Anion Gap 5 mmol/L (6-16); Blood Urea Nitrogen 43 mg/dL (8-24); Bun/Creatinine Ratio 20.4 (12.0-20.0); CO2, Blood 28 mmol/L (21-32); Calcium, Blood 8.5 mg/dL (8.5-10.1); Chloride, Blood 105 mmol/L (98-108); Creatinine, Blood 2.11 mg/dL (0.60-1.20); Glomerular Filtration Rate 32 (60-); Glucose, Blood 191 mg/dL (70-99); Phosphorus, Blood 4.5 mg/dL (2.5-4.9); Potassium, Blood 5.7 mmol/L (3.5-5.5); Sodium, Blood 138 mmol/L (136-145)
[2018-10-03 17:38] LABS: Albumin, Blood 3.1 g/dL (3.4-5.0); Anion Gap 5 mmol/L (6-16); Blood Urea Nitrogen 43 mg/dL (8-24); CO2, Blood 27 mmol/L (21-32); Calcium, Blood 8.6 mg/dL (8.5-10.1); Chloride, Blood 106 mmol/L (98-108); Creatinine, Blood 2.15 mg/dL (0.60-1.20); Glomerular Filtration Rate 31 (60-); Glucose, Blood 183 mg/dL (70-99); Phosphorus, Blood 4.7 mg/dL (2.5-4.9); Potassium, Blood 5.6 mmol/L (3.5-5.5); Sodium, Blood 138 mmol/L (136-145)
[2018-10-04 04:20] LABS: BASOPHILS ABSOLUTE AUTO 0.03 K/mm3 (0.00-0.23); BASOPHILS PERCENT AUTO 0 % (0-2); EOSINOPHILS ABSOLUTE AUTO 0.04 K/mm3 (0.00-0.68); EOSINOPHILS PERCENT AUTO 0 % (0-6); Hematocrit 31.8 % (37.0-53.0); Hemoglobin 10.1 g/dL (13.5-17.5); IMMATURE GRAN ABSOLUTE AUTO 0.06 K/mm3 (0.00-0.10); IMMATURE GRAN PERCENT AUTO 1 % (0-1); LYMPHOCYTES PERCENT AUTO 6 % (21-46); MONOCYTES ABSOLUTE AUTO 1.53 K/mm3 (0.16-1.47); MONOCYTES PERCENT AUTO 12 % (4-13); Mean Corpuscular HGB 32.7 pg (26.0-34.0); Mean Corpuscular HGB Conc 31.8 g/dL (31.5-36.5); Mean Corpuscular Volume 103 fL (80-100); Mean Platelet Volume 9.4 fL (9.1-12.4); NEUTROPHILS ABSOLUTE AUTO 10.18 K/mm3 (1.96-9.15); NEUTROPHILS PERCENT AUTO 81 % (41-73); Platelet Count 126 K/mm3 (150-400); RDW Coefficient Variation 14.9 % (11.7-14.2); RDW Standard Deviation 56.7 fL (35.1-46.3); Red Blood Cell Count 3.09 M/mm3 (4.30-5.90); White Blood Cell Count 12.54 K/mm3 (4.00-11.30)
[2018-10-04 04:37] LABS: Albumin, Blood 2.8 g/dL (3.4-5.0); Anion Gap 5 mmol/L (6-16); Blood Urea Nitrogen 47 mg/dL (8-24); Bun/Creatinine Ratio 22.2 (12.0-20.0); CO2, Blood 26 mmol/L (21-32); Calcium, Blood 8.3 mg/dL (8.5-10.1); Chloride, Blood 108 mmol/L (98-108); Creatinine, Blood 2.12 mg/dL (0.60-1.20); Glomerular Filtration Rate 32 (60-); Glucose, Blood 189 mg/dL (70-99); Phosphorus, Blood 4.5 mg/dL (2.5-4.9); Potassium, Blood 5.6 mmol/L (3.5-5.5); Sodium, Blood 139 mmol/L (136-145)
[2018-10-05 03:54] LABS: BASOPHILS ABSOLUTE AUTO 0.03 K/mm3 (0.00-0.23); BASOPHILS PERCENT AUTO 0 % (0-2); EOSINOPHILS ABSOLUTE AUTO 0.01 K/mm3 (0.00-0.68); EOSINOPHILS PERCENT AUTO 0 % (0-6); Hematocrit 29.5 % (37.0-53.0); Hemoglobin 9.4 g/dL (13.5-17.5); IMMATURE GRAN ABSOLUTE AUTO 0.12 K/mm3 (0.00-0.10); IMMATURE GRAN PERCENT AUTO 1 % (0-1); LYMPHOCYTES ABSOLUTE AUTO 0.57 K/mm3 (0.84-5.20); LYMPHOCYTES PERCENT AUTO 5 % (21-46); MONOCYTES ABSOLUTE AUTO 1.12 K/mm3 (0.16-1.47); MONOCYTES PERCENT AUTO 10 % (4-13); Mean Corpuscular HGB 32.4 pg (26.0-34.0); Mean Corpuscular HGB Conc 31.9 g/dL (31.5-36.5); Mean Corpuscular Volume 102 fL (80-100); Mean Platelet Volume 9.8 fL (9.1-12.4); NEUTROPHILS ABSOLUTE AUTO 9.97 K/mm3 (1.96-9.15); NEUTROPHILS PERCENT AUTO 84 % (41-73); Platelet Count 131 K/mm3 (150-400); RDW Coefficient Variation 15.3 % (11.7-14.2); RDW Standard Deviation 57.5 fL (35.1-46.3); White Blood Cell Count 11.82 K/mm3 (4.00-11.30)
[2018-10-05 04:19] LABS: Albumin, Blood 2.4 g/dL (3.4-5.0); Anion Gap 6 mmol/L (6-16); Blood Urea Nitrogen 52 mg/dL (8-24); Bun/Creatinine Ratio 24.9 (12.0-20.0); CO2, Blood 25 mmol/L (21-32); Calcium, Blood 8.3 mg/dL (8.5-10.1); Chloride, Blood 113 mmol/L (98-108); Creatinine, Blood 2.09 mg/dL (0.60-1.20); Glomerular Filtration Rate 32 (60-); Glucose, Blood 192 mg/dL (70-99); Phosphorus, Blood 3.9 mg/dL (2.5-4.9); Potassium, Blood 5.1 mmol/L (3.5-5.5); Sodium, Blood 144 mmol/L (136-145)
[2018-10-05 04:58] LABS: PCO2 Arterial 47.4 mmHg (35-45); PO2 Arterial 58.4 mmHg (80-100); pH Blood Arterial 7.33 (7.35-7.45)
[2018-10-06 03:57] LABS: BASOPHILS ABSOLUTE AUTO 0.04 K/mm3 (0.00-0.23); BASOPHILS PERCENT AUTO 0 % (0-2); EOSINOPHILS ABSOLUTE AUTO 0.03 K/mm3 (0.00-0.68); EOSINOPHILS PERCENT AUTO 0 % (0-6); Hematocrit 30.8 % (37.0-53.0); Hemoglobin 9.5 g/dL (13.5-17.5); IMMATURE GRAN ABSOLUTE AUTO 0.08 K/mm3 (0.00-0.10); IMMATURE GRAN PERCENT AUTO 1 % (0-1); LYMPHOCYTES ABSOLUTE AUTO 0.59 K/mm3 (0.84-5.20); LYMPHOCYTES PERCENT AUTO 7 % (21-46); MONOCYTES ABSOLUTE AUTO 1.02 K/mm3 (0.16-1.47); MONOCYTES PERCENT AUTO 11 % (4-13); Mean Corpuscular HGB 32.3 pg (26.0-34.0); Mean Corpuscular HGB Conc 30.8 g/dL (31.5-36.5); NEUTROPHILS ABSOLUTE AUTO 7.18 K/mm3 (1.96-9.15); NEUTROPHILS PERCENT AUTO 80 % (41-73); Platelet Count 133 K/mm3 (150-400); RDW Coefficient Variation 15.3 % (11.7-14.2); RDW Standard Deviation 59.1 fL (35.1-46.3); Red Blood Cell Count 2.94 M/mm3 (4.30-5.90); White Blood Cell Count 8.94 K/mm3 (4.00-11.30)
[2018-10-06 03:58] LABS: Mean Corpuscular Volume 105 fL (80-100)
[2018-10-06 04:26] LABS: Albumin, Blood 2.3 g/dL (3.4-5.0); Anion Gap 6 mmol/L (6-16); Blood Urea Nitrogen 56 mg/dL (8-24); CO2, Blood 24 mmol/L (21-32); Calcium, Blood 8.6 mg/dL (8.5-10.1); Chloride, Blood 117 mmol/L (98-108); Glomerular Filtration Rate 34 (60-); Glucose, Blood 168 mg/dL (70-99); Phosphorus, Blood 3.9 mg/dL (2.5-4.9); Sodium, Blood 147 mmol/L (136-145)
[2018-10-07 03:57] LABS: BASOPHILS ABSOLUTE AUTO 0.06 K/mm3 (0.00-0.23); BASOPHILS PERCENT AUTO 1 % (0-2); EOSINOPHILS ABSOLUTE AUTO 0.03 K/mm3 (0.00-0.68); EOSINOPHILS PERCENT AUTO 0 % (0-6); Hematocrit 31.2 % (37.0-53.0); Hemoglobin 9.6 g/dL (13.5-17.5); IMMATURE GRAN PERCENT AUTO 1 % (0-1); LYMPHOCYTES PERCENT AUTO 6 % (21-46); MONOCYTES ABSOLUTE AUTO 1.04 K/mm3 (0.16-1.47); MONOCYTES PERCENT AUTO 12 % (4-13); Mean Corpuscular HGB 32.3 pg (26.0-34.0); Mean Corpuscular HGB Conc 30.8 g/dL (31.5-36.5); Mean Corpuscular Volume 105 fL (80-100); NEUTROPHILS ABSOLUTE AUTO 6.69 K/mm3 (1.96-9.15); NEUTROPHILS PERCENT AUTO 79 % (41-73); Platelet Count 142 K/mm3 (150-400); RDW Coefficient Variation 15.2 % (11.7-14.2); RDW Standard Deviation 59.2 fL (35.1-46.3); Red Blood Cell Count 2.97 M/mm3 (4.30-5.90); White Blood Cell Count 8.42 K/mm3 (4.00-11.30)
[2018-10-07 04:14] LABS: Albumin, Blood 2.2 g/dL (3.4-5.0); Anion Gap 7 mmol/L (6-16); Blood Urea Nitrogen 71 mg/dL (8-24); Bun/Creatinine Ratio 31.3 (12.0-20.0); CO2, Blood 23 mmol/L (21-32); Calcium, Blood 8.4 mg/dL (8.5-10.1); Chloride, Blood 117 mmol/L (98-108); Creatinine, Blood 2.27 mg/dL (0.60-1.20); Glomerular Filtration Rate 29 (60-); Glucose, Blood 235 mg/dL (70-99); Phosphorus, Blood 4.2 mg/dL (2.5-4.9); Potassium, Blood 5.3 mmol/L (3.5-5.5); Sodium, Blood 147 mmol/L (136-145)
== END 2018-10-08 11:20 | DRG 963 ==
LOC: ER 11:36 → PCU 11:37 → ERHOLD 11:37 → PCU 18:20 → MEDS 10-07 18:30 → ENPENDDIS 10-08 11:31
PROVIDERS: Emergency Medicine; ADMIT Internal Medicine
PROC: 5A09557 Assistance with Respiratory Ventilation, Greater than 96 Consecutive Hours, Continuous Positive Airway Pressure (ICD-10-PCS; principal; 2018-10-03)
DX: S06.6X1A Traumatic subarachnoid hemorrhage with loss of consciousness of 30 minutes or less, initial encounter (principal); A41.9 Sepsis, unspecified organism; S27.2XXA Traumatic hemopneumothorax, initial encounter; J18.9 Pneumonia, unspecified organism; G93.41 Metabolic encephalopathy; J96.01 Acute respiratory failure with hypoxia; S22.42XA Multiple fractures of ribs, left side, initial encounter for closed fracture; J94.2 Hemothorax; I13.0 Hypertensive heart and chronic kidney disease with heart failure and stage 1 through stage 4 chronic kidney disease, or unspecified chronic kidney disease; I50.42 Chronic combined systolic (congestive) and diastolic (congestive) heart failure; N17.9 Acute kidney failure, unspecified; Z51.5 Encounter for palliative care; W18.39XA Other fall on same level, initial encounter; E78.00 Pure hypercholesterolemia, unspecified; Z85.46 Personal history of malignant neoplasm of prostate; Z95.1 Presence of aortocoronary bypass graft; I25.10 Atherosclerotic heart disease of native coronary artery without angina pectoris; G30.1 Alzheimer's disease with late onset; F02.80 Dementia in other diseases classified elsewhere, unspecified severity, without behavioral disturbance, psychotic disturbance, mood disturbance, and anxiety; Z87.891 Personal history of nicotine dependence; E11.22 Type 2 diabetes mellitus with diabetic chronic kidney disease; N18.3 Chronic kidney disease, stage 3 (moderate); E86.0 Dehydration; R40.2142 Coma scale, eyes open, spontaneous, at arrival to emergency department; R40.2252 Coma scale, best verbal response, oriented, at arrival to emergency department; R40.2352 Coma scale, best motor response, localizes pain, at arrival to emergency department
CPT/HCPCS: 36415; 36600; 70450; 71045; 71046; 71100; 72125; 73010; 73030; 80048; 80053; 80069; 82803; 82947; 85025; 93005; 93010; 93308; 93321; 93880; 94640; 94660; 94760; 94762; 96374; 96375; 96376; 99285-25; G0378; J0696; J2060; J2405; J3010; J7030; J7070